=== PATIENT | female | born 1980 | race Caucasian/White ===

== ENCOUNTER 2024-11-06 13:49 | Emergency (ER) | payer SELFPAY ==
[2024-11-06 14:09] VITALS: BP 102/68; PULSE 79; RESP 14; TEMP 36.8; O2SAT 97; BMI 21.8
[2024-11-06 16:46] VITALS: BP 135/58; O2SAT 99
--- NOTE | 2024-11-06 16:49 | CTR_ITS ---
PROCEDURE INFORMATION: Exam: CT Lumbar Spine Without Contrast Exam date and time: 11/06/2024 5:48 PM Age: 43 years old Clinical indication: Pain; Lumbago with sciatica; Right TECHNIQUE: Imaging protocol: Computed tomography of the lumbar spine without contrast. Radiation optimization: All CT scans at this facility use at least one of these dose optimization techniques: automated exposure control; mA and/or kV adjustment per patient size (includes targeted exams where dose is matched to clinical indication); or iterative reconstruction. COMPARISON: No relevant prior studies available. RADIATION DOSE METRICS: Total DLP (mGy-cm): 454.7 FINDINGS: Bones/joints: No acute fracture. Normal alignment. No significant disc bulge or herniation. No severe spinal canal stenosis. No significant neural foraminal narrowing. Soft tissues: Unremarkable. CT/CT lumbar spine wo con* [id number] IMPRESSION: No acute lumbar spine fracture.
[2024-11-06 17:17] VITALS: RESP 18; O2SAT 100
[2024-11-06] MEDS: ketorolac 30 mg/mL INJ 15 MG IVP (17:17)
[2024-11-06] MEDS: fentaNYL 50 mcg/mL INJ 2mL IVP (17:17)
--- NOTE | 2024-11-06 17:26 | ED_ITS ---
HPI - Back Pain/Injury General: Chief Complaint: Back Pain/Injury Stated Complaint: back pain Time Seen by Provider: 11/06/24 16:46 History of Present Illness: 43-year-old female presents with low leonidas k pain. Patient has chronic low back pain from having scoliosis and abnormality around L5. Patient reports it got significantly worse for the last couple days and now she cannot hardly move due to the discomfort. She denies any numbness or tingling. She denies any new injury. Associated symptoms: Deny chills or fever(s) Related Data Previous Rx's ?Medication ?Instructions ?Recorded cyclobenzaprine 10 mg tablet 10 mg PO TID PRN muscle s pasm #15 11/06/24 tabs meloxicam 15 mg tablet 15 mg PO DAILY #14 tabs 10/27 06/22 Allergies Allergy/AdvReac Type Severity Reaction Status Date / Time morphine Allergy Unknown Verified 11/06/24 14:14 Penicillins Allergy Unknown Verified 11/06/24 14:14 Review of Systems Const: Denies: fever(s) or chills Card: Denies: chest pain or palpitations Resp: Denies: dyspnea or productive cough : Denies: difficulty voiding Musc: Reports: back pain Neuro: Denies: numbness in extremities or weakness in extremities Physical Exam Const: GENERAL APPEARANCE: in distress (Mild); not comfortable Resp: COMMON NORMALS: normal respiratory effort and clear to auscultation bilaterally AUSCULTATION: clear to auscultation bilaterally Cardio: COMMON NORMALS: regular rate and regular rhythm RATE: regular rate RHYTHM: regular rhythm Back/Pelvis: LUMBAR SPINE/LOWER BACK: Yes pain with ROM, Yes lumbar spinal tenderness and Yes paraspinal muscle tenderness Course Vital Signs: Vital signs: Vital Signs Temperature 98.3 F 11/06/24 14:09 Pulse Rate 79 11/06/24 14:09 Respiratory Rate 18 11/06/24 17:17 Blood Pressure 103/67 11/06/24 18:43 Pulse Oximetry 100 11/06/24 18:43 Oxygen Delivery Me thod Room Air 11/06/24 14:09 MDM - Back Pain/Injury Medical Decision Making Patient's symptoms improved following treatment. Patient CT lumbar shows no acute findings. Patient's likely some mild lumbar strain. She will prescribe naproxen and a muscle relaxant. She can also use Voltaren and topical lidocaine. She should follow with her primary care provider. Also recommended maybe yoga and Pilates to help with her core strength and flexibility. She was stable and discharged home. Labs Radiology Impressions Lumbar Spine CT 11/06/24 16:49 IMPRESSION: No acute lumbar spine fracture. Laboratory Results HCG, Qual Negative (Negative) 11/06/24 16:52 All radiology interpretation(s) finalized by discharge Discharge Plan Discharge Patient Disposition: Home Clinical Impression: Strain of lumbar region Condition: Stable Prescriptions: New cyclobenzaprine 10 mg tablet 10 mg PO TID PRN (Reason: muscle spasm) Qty: 15 0RF meloxicam 15 mg tablet 15 mg PO DAILY Qty: 14 0RF Discharge Orders: Discharge ED (Routine); Ordered 11/06/24 Ordered By: Yomi Barr Discharge Diet: Usual diet Discharge Activity: Increase activity as tolerated Patient Instructions: Low Back Strain (ED), Acute Low Back Pain (ED), Lower Back Exercises (ED), Opioid Safety, Pain Management Activity Restrictions/Additional Instructions: 4% topical lidocaine with menthol cream gel or patch along with Voltaren/diclofenac cream or gel. Please use these as directed on package. Do not take any additional Aleve or ibuprofen with the prescribed meloxicam. Please consider doing some gentle stretching exercises such as yoga and Pilates. Follow with your primary care provider as needed. Print Language: Monegasque Coding Level of Care Code ED Client Finance Analyst for Yolande Wooten
[2024-11-06 17:28] LABS: HCG Qualitative Urine. Negative (Negative)
[2024-11-06 18:43] VITALS: BP 103/67; O2SAT 100
[2024-11-06] MEDS: orphenadrine 30 mg/mL Inj 2 mL 60 MG IM (19:10)
[2024-11-06 19:16] VITALS: BP 104/65; PULSE 74; RESP 16; O2SAT 100
== END 2024-11-06 19:17 | disposition home or self-care (01) ==
PROVIDERS: Emergency Provider Student in an Organized Health Care Education/Training Program
DX: S39.012A Strain of muscle, fascia and tendon of lower back, initial encounter (principal); G89.29 Other chronic pain; Z79.899 Other long term (current) drug therapy; Z88.5 Allergy status to narcotic agent; Z88.0 Allergy status to penicillin; X58.XXXA Exposure to other specified factors, initial encounter
CPT/HCPCS: 72131; 81025; 96374; 96375; 99285; J1885; J2360; J3010